=== PATIENT | male | born 2005 | race Two or more races ===

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

== ENCOUNTER 2023-04-28 18:33 | Emergency (ER) | payer OTHER ==
[2023-04-28 18:45] VITALS: BP 115/73; PULSE 67; RESP 16; TEMP 97.8; BMI 30.9
[2023-04-28] MEDS ORDERED: DIPHTH,PERTUSS(ACELL),TET 0.5 ML DISP.SYRIN IM ONE ×2 (21:00→21:04)
== END 2023-04-28 21:35 | disposition home or self-care (01) ==
LOC: JER 18:33 → JERFT 18:33
PROC: 3E0234Z Introduction of Serum, Toxoid and Vaccine into Muscle, Percutaneous Approach (ICD-10-PCS; principal; 2023-04-28)
DX: L03.031 Cellulitis of right toe (principal)
CPT/HCPCS: 90715; 99283-25